=== PATIENT | male | born 1955 | race Two or more races ===

== ENCOUNTER 2018-02-03 14:43 | Outpatient (CLI) | payer OTHER | END 2018-02-03 15:03 | disposition home or self-care (01) | LOC: SONOGRAMA 14:43 | DX: M25.512 Pain in left shoulder (principal); M75.42 Impingement syndrome of left shoulder ==

== ENCOUNTER 2018-02-10 07:30 | Outpatient (CLI) | payer OTHER | END 2018-02-10 07:38 | disposition home or self-care (01) | LOC: LAB 07:30 | DX: D68.9 Coagulation defect, unspecified (principal); E78.2 Mixed hyperlipidemia; N39.0 Urinary tract infection, site not specified ==

== ENCOUNTER 2018-11-25 08:05 | Outpatient (CLI) | payer OTHER | END 2018-11-25 09:38 | disposition home or self-care (01) | LOC: NUCLEAR 08:05 | DX: C61 Malignant neoplasm of prostate (principal) | CPT/HCPCS: 78306; 78320; A9503 ==

== ENCOUNTER 2019-01-13 07:54 | Outpatient (CLI) | payer OTHER | END 2019-01-13 08:38 | disposition home or self-care (01) | LOC: LAB 07:54 | DX: C61 Malignant neoplasm of prostate (principal) ==

== ENCOUNTER 2019-04-21 07:44 | Outpatient (CLI) | payer OTHER | END 2019-04-21 07:50 | disposition home or self-care (01) | LOC: LAB 07:44 | DX: C61 Malignant neoplasm of prostate (principal) ==

== ENCOUNTER 2019-11-10 07:04 | Outpatient (CLI) | payer OTHER | END 2019-11-10 07:17 | disposition home or self-care (01) | LOC: LAB 07:04 | DX: C61 Malignant neoplasm of prostate (principal) ==

== ENCOUNTER → 2020-04-19 | Outpatient (CLI) | payer OTHER | END | disposition home or self-care (01) | LOC: LAB 07:26 | PROVIDERS: ATTEND Urology | DX: C61 Malignant neoplasm of prostate (principal) ==

== ENCOUNTER 2020-12-28 08:22 | Outpatient (CLI) | payer OTHER | END 2020-12-28 08:34 | disposition home or self-care (01) | LOC: LAB 08:22 | PROVIDERS: ATTEND Urology | DX: C61 Malignant neoplasm of prostate (principal) ==

== ENCOUNTER → 2021-07-05 08:09 | Outpatient (CLI) | payer OTHER | END | disposition home or self-care (01) | LOC: LAB 08:09 | PROVIDERS: ATTEND Urology | DX: C61 Malignant neoplasm of prostate (principal) ==

== ENCOUNTER 2022-01-09 08:41 | Outpatient (CLI) | payer OTHER | END 2022-01-09 08:46 | disposition home or self-care (01) | LOC: LAB 08:41 | PROVIDERS: ATTEND Urology | DX: C61 Malignant neoplasm of prostate (principal) ==

== ENCOUNTER 2022-07-15 07:12 | Outpatient (CLI) | payer OTHER | END 2022-07-15 07:13 | disposition home or self-care (01) | LOC: LAB 07:12 | PROVIDERS: ATTEND Urology | DX: C61 Malignant neoplasm of prostate (principal) ==

== ENCOUNTER 2023-03-25 07:52 | Outpatient (CLI) | payer OTHER | END 2023-03-25 07:57 | disposition home or self-care (01) | LOC: LAB 07:52 | PROVIDERS: ATTEND Urology | DX: C61 Malignant neoplasm of prostate (principal) ==

== ENCOUNTER 2023-06-26 12:51 | Outpatient (CLI) | payer OTHER | END 2023-06-26 12:57 | disposition home or self-care (01) | LOC: NUCLEAR 12:51 | PROVIDERS: ATTEND Internal Medicine | DX: I87.2 Venous insufficiency (chronic) (peripheral) (principal); I73.9 Peripheral vascular disease, unspecified ==

== ENCOUNTER 2023-07-01 08:38 | Outpatient (CLI) | payer OTHER | END 2023-07-01 08:39 | disposition home or self-care (01) | LOC: NUCLEAR 08:38 | PROVIDERS: ATTEND Internal Medicine | DX: I87.2 Venous insufficiency (chronic) (peripheral) (principal); I73.9 Peripheral vascular disease, unspecified ==

== ENCOUNTER 2023-08-12 07:45 | Outpatient (CLI) | payer OTHER | END 2023-08-12 07:47 | disposition home or self-care (01) | LOC: LAB 07:45 | PROVIDERS: ATTEND Urology | DX: C61 Malignant neoplasm of prostate (principal) ==

== ENCOUNTER 2024-01-01 08:48 | Outpatient (CLI) | payer OTHER ==
[2024-01-01 10:23] LABS: URINE APPEARANCE Clear; URINE BILIRRUBIN Negative (NEGATIVE); URINE BLOOD Trace; URINE COLOR Yellow; URINE GLUCOSE Negative (NEGATIVE); URINE LEUKOCYTE Negative; URINE NITRATE Negative; URINE PROTEIN Negative (NEGATIVE); URINE UROBILINOGEN 0.2 E.U./dl
[2024-01-01 10:27] LABS: URINE BACTERIA 7.5 uL (0.0-1933); URINE EPITHELIAL CELLS 1.8 uL (0.0-38.8)
[2024-01-01 10:33] LABS: URINE WBC 1.5 uL (0.0-23.2)
== END 2024-01-01 08:49 | disposition home or self-care (01) ==
LOC: LAB 08:48
PROVIDERS: ATTEND Urology
DX: C61 Malignant neoplasm of prostate (principal)

== ENCOUNTER 2024-02-05 07:53 | Outpatient (CLI) | payer OTHER | END 2024-02-05 07:55 | disposition home or self-care (01) | LOC: LAB 07:53 | PROVIDERS: ATTEND Internal Medicine Hematology & Oncology | DX: C61 Malignant neoplasm of prostate (principal) ==

== ENCOUNTER 2024-05-25 09:27 | Outpatient (CLI) | payer OTHER | END 2024-05-25 09:35 | disposition home or self-care (01) | LOC: SONOGRAMA 09:27 | PROVIDERS: ATTEND Internal Medicine | DX: E04.2 Nontoxic multinodular goiter (principal) ==

== ENCOUNTER 2024-06-15 06:45 | Outpatient (CLI) | payer OTHER ==
[2024-06-15 08:47] LABS: FREE TRIODOTIRONINE 2.98 pg/ml (2.18-3.98); T4 FREE 0.87 NG/ML (0.76-1.46); TSH 1.64 uIU/mL (0.358-3.74)
== END 2024-06-15 07:14 | disposition home or self-care (01) ==
LOC: LAB 06:45
PROVIDERS: ATTEND Internal Medicine
DX: E03.9 Hypothyroidism, unspecified (principal)